=== PATIENT | female | born 1980 | race Caucasian/White ===

== ENCOUNTER 2017-11-18 05:30 | Inpatient (IN) | payer BC ==
[2017-11-18] MEDS: Lactated Ringer's 1,000 ML IV SCH ×2 (10:15→14:10)
[2017-11-18] MEDS ORDERED: NS w/ Oxytocin 10 units 500 ML ONE (10:19)
[2017-11-18] MEDS ORDERED: Bupivacaine 0.25% HCL 30 ML VIAL ONE (11:11)
[2017-11-18] MEDS ORDERED: Promethazine HCl 25 MG/ML VIAL IM PRN (12:33)
[2017-11-18] MEDS ORDERED: Ondansetron HCl/PF 4 MG/2 ML Vial IVP PRN ×2 (12:33→20:52)
[2017-11-18] MEDS ORDERED: Acetaminophen/Codeine 30-300mg Tablet PO PRN ×4 (12:33→20:52)
[2017-11-18] MEDS ORDERED: Lidocaine 1% (PF) 30 ML VIAL SC PRN (12:33)
[2017-11-18] MEDS ORDERED: NS w/ Oxytocin 10 units 500 ML IV SCH ×2 (12:33)
[2017-11-18] MEDS ORDERED: Butorphanol Tartrate 1 MG/ML VIAL SLOW IVP PRN (12:33)
[2017-11-18] MEDS ORDERED: NS / Oxytocin 40 units/1000ml 1,000 ML IV PRN (12:33)
[2017-11-18] MEDS ORDERED: Ibuprofen 800 MG TAB PO PRN (12:33)
[2017-11-18 13:07] VITALS: BMI 25.1
[2017-11-18] MEDS ORDERED: Fentanyl 4 mcg/Bup 0.1% Cadd 100 ML ONE (13:15)
--- NOTE | 2017-11-18 15:23 | PDOC.LDHP ---
Labor and Delivery H&P Chief complaint: scheduled induction HPI: Pt is a 37yo here for IOL @ 40 weeks. Current gestational age (weeks): 40 Due date: 11/17/17 Grav: 6 Para: 2 OB History Details: SAB x 3, x 2 Current complications: other (high risk NIPT for XO) Abnormal US findings: No Past Medical History: none Current medications: pre-juaquin vitamins Previous surgical history: dilation and curettage Allergies/Adverse Reactions: Allergies Allergy/AdvReac Type Severity Reaction Status Date / Time No Known Allergies Allergy Unverified 03/14/14 15:15 Social history: none - Physical Exam Vital signs reviewed and normal: yes General: resting Heart: RRR Lungs: CTAB Abdomen: gravid Extremeties: no edema FHT: category 1 - Vaginal Exam cm dilated: 1 Effacement: 50% Station: -2 - OB Labs Blood type: O RH: positive Antibody Screen: negative HIV: negative RPR: negative HEPSAg: negative 1 hour GCT: negative GBS: negative Urine drug screen: not done Rubella: immune - Assessment L&D Assessment: elective induction at term - Plan Plan: admit to L&D, labor augmentation if indicated, informed consent obtained, anesthesia consult for pain management -: A/P: 37yo @40.1 weeks here for IOL, preg uncomplicated w exception of NIPT high risk for monosomy X, NICU aware. Consents for post delivery genetic testing of infants.
--- NOTE | 2017-11-18 15:28 | PDOC.LDPN ---
Labor & Delivery Progress Note - Subjective Subjective: comfortable - Objective Vital signs reviewed and normal: yes General: resting AROM: clear fluid -: Delayed entry, secondary to network outage. AROM on admit exam, clear.
[2017-11-18 15:29] LABS: Hemoglobin 11.8 g/dL (12.0-16.0); Mean Corpuscular HGB CONC 32.7 g/dL (32.0-36.0); Mean Platelet Volume 9.1 fL (7.4-10.4); Platelet Count 137 thou/uL (130-400); RBC Distribution Width 11.9 % (11.5-14.5); Red Blood Cell (RBC) Count 3.57 mill/uL (4.20-5.40)
[2017-11-18 17:15] LABS: HBSAg Index 0.19 S/CO (0-0.99); Hep B Surf Ag NonReactive S/CO (NonReactive)
--- NOTE | 2017-11-18 18:03 | PDOC.OPDEL ---
OB Operative/Delivery Note Delivery Dr/Surgeon: David Pre-Delivery Diagnosis: elective induction Procedure/Post Delivery Dx: spontaneous vaginal delivery Weeks gestation: 40 - Findings A Sex: female - Additional Findings/Plan Placenta delivered: spontaneous Repaired Obstetrical Laceration: 1st degree Estimated blood loss: 100ml Post delivery plan: routine recovery
[2017-11-18] MEDS ORDERED: Bisacodyl 10 MG SUPP PR PRN (20:52)
[2017-11-18] MEDS ORDERED: Milk Of Magnesia 30 ML UDCUP PO PRN (20:52)
[2017-11-18] MEDS ORDERED: Lanolin Ointment 7 GM TUBE TOP PRN (20:52)
[2017-11-18] MEDS ORDERED: diphenhydrAMINE 25 MG CAP PO PRN (20:52)
[2017-11-18] MEDS ORDERED: Adacel (T-DAP) 0.5 ML VIAL IM ONE (20:52)
[2017-11-18] MEDS ORDERED: Benzocaine/Menthol 20-0.5% 60 ML CAN TOP PRN (20:52)
[2017-11-18] MEDS ORDERED: NS / Oxytocin 40 units/1000ml 1,000 ML IV SCH (20:52)
[2017-11-18] MEDS: Docusate Calcium (SURFAK) 240 MG CAP PO SCH (23:11)
[2017-11-18] MEDS: Ibuprofen 800 MG TAB PO SCH (23:12)
[2017-11-19] MEDS: Ibuprofen 800 MG TAB PO SCH ×2 (06:23→14:17)
--- NOTE | 2017-11-19 08:34 | DIS ---
DATE OF ADMISSION: 11/18/2017 DATE OF DISCHARGE: 11/19/2017 ADMITTING DIAGNOSIS: Postdates induction. DISCHARGE DIAGNOSIS: Postdates induction. PROCEDURE: Term spontaneous vaginal delivery. HOSPITAL COURSE: The patient is a 37-year-old multiparous female who presented yesterday for a sched uled induction of labor, which resulted in an uncomplicated term spontaneous vaginal delivery. This morning, the patient reports she is tolerating p.o., voiding on her own, having decreased lochia and good pain control and has expressed interest in discharge home. PHYSICAL EXAMINATION: VITAL SIGNS: Blood pressure this morning is 116/69, temperature 97.8, pulse of 54, respiratory rate of 20. GENERAL: She appears to be in no acute distress. She is alert and oriented, cooperative and pleasan t to interact with. HEENT: Head is normocephalic, atraumatic. ABDOMEN: Fundus is firm at the umbilicus. EXTREMITIES: Nontender, nonedematous. LABORATORY DATA: Her pre-delivery hemoglobin was 11.8, hematocrit 36.0, platelets 337,000. DISPOSITION: The patient will be discharged to home. DISCHARGE INSTRUCTIONS: She has instructions to follow up with Dr. Hernandez, her primary OB in 6 weeks and instructions to seek attention sooner if she experiences fever, increasing pain or bleeding. Pat ient will be using [id number] ibuprofen as needed for pain control.
[2017-11-19] MEDS ORDERED: Prenatal Vitamin 1 TAB PO SCH (09:00)
[2017-11-19] MEDS: Ferrous Sulfate 325 MG TAB PO SCH ×2 (09:44→18:01)
[2017-11-19] MEDS: Docusate Calcium (SURFAK) 240 MG CAP PO SCH (09:45)
[2017-11-19 11:51] VITALS: BP 120/71; TEMP 98
== END 2017-11-19 18:35 | disposition home or self-care (01) | DRG 807 ==
LOC: L&D 09:45 → 3SW 20:38
PROVIDERS: ADMIT Obstetrics & Gynecology; ATTEND Obstetrics & Gynecology
PROC: 10E0XZZ Delivery of Products of Conception, External Approach (ICD-10-PCS; principal; 2017-11-18)
PROC: 3E033VJ Introduction of Other Hormone into Peripheral Vein, Percutaneous Approach (ICD-10-PCS; 2017-11-18)
PROC: 0HQ9XZZ Repair Perineum Skin, External Approach (ICD-10-PCS; 2017-11-18)
PROC: 10907ZC Drainage of Amniotic Fluid, Therapeutic from Products of Conception, Via Natural or Artificial Opening (ICD-10-PCS; 2017-11-18)
DX: O48.0 Post-term pregnancy (principal); Z37.0 Single live birth; Q96.8 Other variants of Turner's syndrome; Z3A.40 40 weeks gestation of pregnancy; O70.0 First degree perineal laceration during delivery
CPT/HCPCS: 51702; 85027; 86850; 86900; 86901; 87340; S0020